=== PATIENT | female | born 1960 | race Caucasian/White ===

== ENCOUNTER 2025-02-23 13:40 | Outpatient (CLI) | payer MEDICARE, SELFPAY ==
--- NOTE | ~2025-02-23 | CT_ITS ---
CT Scan of the Chest without Contrast: Clinical Indication: Lung cancer screening, nicotine dependence Technique: Contiguous sections were acquired throughout the chest without intravenous contrast. Dose reduction technique was used on this scan by utilizing automated exposure control and iterative recon struction technique. The dose-length product (DLP) was 75.75 mGy-cm. Findings: There is no evidence of any significant mediastinal, hilar or axillary lymphadenopathy. Coronary criselda ry calcifications are present.. There is no evidence of pleural or pericardial effusion. Calcified right upper lobe granuloma present. There is minimal biapical scarring. Images through the upper abdomen reveal no abnormalities. Impression: Lung RADS 2: Benign appearance. 12 month follow-up screening CT advised. Reviewed, dictated and finalized at location . Impression: Lung RADS 2: Benign appearance. 12 month follow-up screening CT advised.
--- NOTE | ~2025-02-23 | CT_ITS ---
CLINICAL INDICATION: No complaints. Remote history of abdominal pain, now resolved. COMPARISON: None. TECHNIQUE: Multiple contiguous axial images of the abdomen and pelvis were performed without the admi nistration of intravenous contrast The dose-length product (DLP) was 545.31 mGy-cm. Automated exposure control and iterative reconstruction technique were employed. FINDINGS/OBSERVATIONS: Visualized lower thorax: The bilateral lung bases are clear. The heart is of normal size, without pericardial effusion. Small hiatal hernia is present. Liver: The liver demonstrates homogeneous attenuation and is enlarged measuring 21 cm in longitudinal dimens ion Gallbladder and biliary system: The gallbladder is only minimally distended, and otherwise unremarkable. Pancreas: Limited evaluation of the pancreas secondary to the lack of intravenous contrast. Spleen: The spleen demonstrates homogeneous attenuation and is not enlarged. Kidneys: The bilateral kidneys are unremarkable, without hydronephrosis or renal calculi. Adrenal glands: Unremarkable. Gastrointestinal tract: Colonic diverticulosis without surrounding inflammatory change. Appendix: The appendix is not definitively visualized. However, no pericecal inflammatory change is identified suggest the presence of acute appendicitis. Vasculature: Densely calcified atherosclerotic disease. Lymph nodes: Limited evaluation without intravenous contrast Pelvic structures: The bladder is decompressed, and otherwise unremarkable. The uterus is anteverted and anteflexed, and otherwise unremarkable. Body wall and musculoskeletal: Sebaceous cyst within the left anterior soft tissues of the lower pelvis. No significant degenerative disease within the lower thoracic or lumbosacral spine. IMPRESSION: Hepatomegaly. No acute pathology within the abdomen or pelvis, as detailed above. Reviewed, dictated and finalized at location A.
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
--- OUTSIDE RECORDS SUMMARY | 2025-02-23 13:45 | XMS_ITS | Data Portability ---
[facility] Address [address] [place] [address] Care Team Providers Care Oyster Planter Name Role Phone MIESHA ESQUIVEL Primary Care Provider [phone] Assessment No assessment recorded. Plan of Treatment Reminders Order Date Submit Date Provider Last Modified By Organization Details Last Modified Time Details Appointments None recorded. Lab None recorded. Referral None recorded. Procedures None recorded. Surgeries None recorded. Imaging None recorded. Medication Orders lisinopril 10 mg-hydrochl orothiazide 12.5 mg tablet 2021 022 [id number], [address] , [place], [place], [phone], 09:00:14 Patient TargetsNo targets recorded. Patient Instructions Encounter Date Encounter Id Patient Instructions Last Modified By Organization Details Last Modified Time 08/14/2022 [id number] learning about lung cancer screening Not available 08/14/2022 09:09:55 high cholesterol : care instructions Not available 08/14/2022 09:17:26 mammogram: about this test Not available 08/14/2022 09:09:55 breast self-exam : care instructions Not available 08/14/2022 09:09:55 colon cancer screening: care instructions Not available 08/14/2022 09:09:55 Reason for Referral None Reported. Problems Name Problem SNOMED Code Status Onset Date Resolution Date Notes Provider Name and Address Organization Details Recorded Time Essential hypertension 55409852 Active 2021 Merly Leyva MA [facility] 08:44:58 Hyperlipidemia 67707584 Active 2021 TRUONG FLOR Attn: [place],[address], [place], [address], [facility] 2 09:17:27 Family history of Alzheimer's disease 085887994 Active 2021 TRUONG FLOR Attn: [place],[address], [place], [address], [facility] 2 09:17:28 Smoker 06190187 Active 2021 TRUONG FLOR Attn: [place],[address], [place], [address], [facility] 2 09:17:29 Problem Notes None recorded. Procedures Surgical History Date Name Laterality Status Provider Name and Address Organization Details Recorded Time Date of Last Mammogram completed Merly Leyva MA [facility] 08/14/2022 08:46:39 removal of sebaceous cyst completed Merly Leyva MA [facility] 08/14/2022 08:51:34 Imaging Results None recorded. Procedure Notes None recorded. Medical Equipment None Reported. Allergies No known drug allergies Medications Name Sig Start Date Stop Date Status Note LastModified by Organization Details LastModified Time prednisone 10 mg tablet 08/14 completed Not Available Not Available Not Available azithromycin 250 mg tablet 08/14 completed Not Available Not Available Not Available benzonatate 100 mg capsule TAKE 1 CAPSULE BY MOUTH THREE TIMES DAILY 08/14 completed Not Available Not Available Not Available lisinopril 10 mg-hydrochlo rothiazide 12.5 mg tablet TAKE 1 TABLET BY MOUTH EVERY DAY active Not Available Not Available No t Available Vitals Date Recorded Body height Body mass index (BMI) Body weight Heart rate Body temperature Oxygen saturation Oxygen saturation in Arterial blood by Pulse oximetry Systolic blood pressure Diastolic blood pressure Provider Name and Address Organization Details Last Updated DateTime 172.72 cm 28.7 kg/m2 32917.5 6 g 71 /min 98.1 [degF] 99 % 99 % 132 mm[Hg] 72 mm[Hg] Merly Leyva MA [facility] 08:44:22 Social History Question Answer Notes LastModified by Organizat ion Details LastModified Time Tobacco Smoking Status Current Every Day Smoker [facility] [place] [facility] 08/14/2022 08:50:31 Do You Have An Advance Directive? No Information n ot available 08/14/2022 What Is Your Level Of Alcohol Consumption? None Information not available 08/14/2022 In The 14 Days Before Symptom Onset, Have You Had Close Contact With A Laboratory-confirm ed COVID-19 While That Case Was Ill? No Information n ot available 08/14/2022 In The 14 Days Before Symptom Onset, Have You Had Close Contact With A Person Who Is Under Investigation For COVID-19 While That Person Was Ill? No Information not available 08/14/2022 Have You Been To An Area Known To Be High Risk For COVID-19? No Information not available 08/14/2022 Are You Currently Employed? Yes Information not available 08/14/2022 What Was The Date Of Your Most Recent Tobacco Screening? 08/14/2022 Information not available 08/14/2022 What Is Your Relationship Status? Information not available 08/14/2022 Are You Sexually Active? Yes Information not available 08/14/2022 Do You Have Smoke And Carbon Monoxide Detectors In Your Home? Yes Information not available 08/14/2022 Are You Passively Exposed To Smoke? Yes Information no t available 08/14/2022 How Much Tobacco Do You Smoke? 1 PPD Information not available 08/14/2022 Do You Use Any Illicit Or Recreational Drugs? No Information not available 08/14/2022 Has Tobacco Cessation Counseling Been Provided? Yes Information not available 08/14/2022 On What Date Was Tobacco Cessation Counseling Provided? 08/14/2022 Information not available 08/14/2022 Do You Or Have You Ever Used Any Other Forms Of Tobacco Or Nicotine? No Information not available 08/14/2022 Sex: Female Functional Status None recorded. Mental Status None recorded. Family History Relationship Description Onset Age of this Age Resolved Age Notes LastModified by Organization Details LastModified Time Sister Malignant tumor of breast [email or web address] Not available 2021 08:47:20 Mother Alzheimer's disease mnelsonma Not available 2021 08:47:51 Medical History Condition Response Coronary Artery Disease N Other N High Blood Pressure Y Atrial Fibrillation N Kidney or Bladder Problems N Thyroid Problems N GI Problems N Depression N COPD N Blood Clots N Skin Problems N Anemia N Heart Attack (TN) N Anxiety Disorder N Diabetes N Muscle, Joint, or Bone Problems Y Seizures/Epilepsy N Acid Reflux (GERD) N Cancer N Stroke N Asthma N Allergies N High Cholesterol N Hepatitis N Liver Disease N Headaches N Heart Failure N Osteoporosis N Gynecological History Statement/Question Response If Post Menopausal, Age at Menopause 51 Date of Last Mammogram 10/18/2005 On BCP's at Conception? Y Menses Monthly N Age at Menarche 11 Age at First Child 16 LMP Unknown Obstetrics History GPAL:G 4 P 4 0 0 4 Type Value Full Term 4 Living 4 Total 4 Past Encounters Encounter ID Performer Location Encounter Start Date Encounter Closed Date Diagnosis/Indication Diagnosis SNOMED-CT Code Diagnosis ICD10 Code Diagnosis Note [id number] TRUONG FLOR (Adult Med) [address] [place] [phone] 08/14/2022 08:32:12 08/17/2022 14:14:42 Essential hypertension 41883642 I10 BP Today: 132/72c/w lisinopril 10 mg - hctz 12.5 mg daily Discussed DASH dietAdvise d 30 minutes of exercise minimum dailyAdvis ed tobacco, alcohol, caffeine all increase BPAdvised goal for BP is <140/90Con tact office if BP is > 140/90 consistent lyDIscusse d consequenc es of HTN including kidney, eye, heart damage, stroke, and even RTC 6 months for BP check- medication s refilled today Adult heal th examination 935541791 Z00.00 61 year old female presents today to establish care. She used to follow with Dr. Gottlieb but he no longer takes her insurance. OBGYN provider: Not following with anyone currentlyM ammogram and pap smear: has not had one for many years, sister had breast cancer at age 30 but tested negative BRCAColono scopy: No prior colonoscop y, denies diarrhea, constipati on, blood in the stool, and family hxTakes vit. b12, vitamin D, and tumeric- discussed importance of all screening measures but not interested at this time, states she will think on all of these Smoker 10391991 F17.200 Smokes 1 PPD since early 20s, not concerned or interested in quitting at this time. No prior lung cancer screening. - discussed importance of quitting and also screening for cancer, not interested at this time but will think on the screening part Family his tory of Alzheimer's disease 352217610 Z81.8 Both father and younger sister- will continue to monitor Hyperlipidemia 69962797 E78.5 Previous labs from prior PCP, slightly elevated but not high enough for medication - continue to work on diet- repeat labs in 6 months Influenza vaccination declined 573972918 Z28.21 Has the flu last week so no longer interested in getting vaccinated Health Concerns Section Related Observation LastModified by Organization Detai ls LastModified Time None Recorded Concern Status LastModified by Organization Details LastModified Time None Recorded Advance Directives Directive N: Payers Encounter Date Sequence Insurance Name Policy Number Policy Shipman Covered Member ID Shipman Member ID Guarantor Name 08/14/2022 1 *SELF PAY* [employer] 08/14/2022 2 [facility] [employer] [id number] [employer] Notes Date Note Type Note Provider Name and Address Organization Details Recorded Time 08/14/2022 text/html 61 year old female presents today to establish care. She used to follow with Dr. Gottlieb but he no longer takes her insurance. Developed HTN after COVID. Currently taking lisinopril-hctz and doing well with no complaints. Smokes 1 PPD since early 20s, not concerned or interested in quitting at this time. Does not follow with an OBGYN provider, has not had a mammogram or pap smear in many years. No prior colonoscopy. No prior lung cancer screening. Denies fever, chills, nausea, vomiting, headaches, chest pain, SOB, abdominal pain, diarrhea, constipation, or dysuria. TRUONG FLOR Attn: [address] [place], [address], [place] - [facility] 08/14/2022 09:19:48 OBGyn Episode No OBEpisode recorded.
== END 2025-02-23 13:41 | disposition home or self-care (01) ==
PROVIDERS: PCP Nurse Practitioner Family; Visit Provider Nurse Practitioner Family
DX: Z12.2 Encounter for screening for malignant neoplasm of respiratory organs (principal); R31.29 Other microscopic hematuria; R16.0 Hepatomegaly, not elsewhere classified; Z87.891 Personal history of nicotine dependence
CPT/HCPCS: 71271; 74176